=== PATIENT | female | born 1995 | race Caucasian/White ===

== ENCOUNTER 2021-07-25 00:27 | Day surgery (SDC) | payer BC, SELFPAY ==
[2021-07-17 11:43] VITALS: BMI 36.3
[2021-07-25] VITALS (16 sets, daily range): BP systolic 112–177; BP diastolic 65–92; PULSE 69–99; RESP 11–21; TEMP 36.6; O2SAT 94–100; BMI 37.3
--- NOTE | 2021-07-25 | ECHO_ITS ---
Patient Info Name: Leela Wilkerson Age: 25 years : 1995 Gender: Female Ht: 63 in Wt: 210 lbs BSA: 2.10 m2 HR: 75 bpm BP: 132 / 65 mmHg Technical Quality: Fair Exam Date: 07/25/2021 11:16 AM Exam Location: [facility] Patient Status: Outpatient Admit Date: 07/25/2021 Staff Ordering Physician: Ian Lawrence DO Pig Caster: Jessica Walker RDCS Attending Provider: Ghulam Leblanc MD Referring Physician: Howard ROD; Exam Type: CA echo doppler color flow Study Info Indications I47.2 - Ventricular tachycardia Complete two-dimensional, color flow and Doppler transthoracic echocardiogram is performed. Summary 1. Complete two-dimensional, color flow and Doppler transthoracic echocardiogram is performed. 2. No apical images obtained due to recent surgery. 3. Left ventricular chamber dimension is normal. 4. Left ventricular systolic function is normal, estimated at 60-65%. 5. The left ventricular diastolic function is normal. Tissue doppler is not performed. Left Ventricle No apical images obtained due to recent surgery. The left ventricular diastolic function is normal. Tissue doppler is not performed. Left ventricular chamber dimension is normal. Left ventricular systolic function is normal, estimated at 60-65%. Right Ventricle Right ventricular chamber dimension is normal. Right ventricular systolic function is normal. Left Atria Left atrial chamber dimension is normal. Right Atria Right atrial chamber dimension is normal. Aortic Valve The aortic valve is trileaflet. There is no aortic valve stenosis. There is no aortic valve regurgitation. Pulmonic Valve There is no pulmonic regurgitation. Mitral Valve There is no mitral valve stenosis. There is no mitral valve regurgitation. Tricuspid Valve There is no tricuspid valve regurgitation. Pericardium/Pleural There is no pericardial effusion. Inferior Vena Cava Normal inferior vena cava with >50% collapse upon inspiration consistent with normal right atrial pressure, 5 mmHg. Aorta The aortic root size at the sinus of Valsalva is normal. Left Ventricular Outflow Tract Name Value Normal LVOT 2D LVOT Diameter 2.0 cm Pulmonic Valve Name Value Normal RVOT Doppler RVOT Peak Gradient 2 mmHg PV Doppler PV Peak Gradient 4 mmHg Tricuspid Valve Name Value Normal Estimated PAP/RSVP RA Pressure 5 mmHg <=5 Aorta Name Value Normal
[2021-07-25 06:30] LABS: Urine Cotinine NEGATIVE
--- NOTE | 2021-07-25 06:53 | WPDHPUPDATE1 ---
History and Physical Update Update Date/Time: 07/25/21 06:53 History and Physical has been reviewed, including an updated exam of the patient. There are NO changes in the patient's condition. Risks, benefits, and alternatives have been discussed and questions answered. Patient agrees to proceed with procedure.
--- NOTE | 2021-07-25 06:54 | P.OP_ITS ---
Procedure Note - Detailed Date of Procedure 07/25/21 Pre-op Diagnosis macromastia Post-op Diagnosis same Procedure Performed Bilateral Reduction Mammaplasty Surgeon Ghulam Leblanc MD Anesthesia general Findings Invert T Superior Medial Pedicle Tissue removed: Right - 1182.3 grams Left - 1138.6 grams Description of Procedure She is here today for bilateral breast reduction. Previously and again today the risks, benefits, alternatives were discussed in extensive detail. I wanted her to be very realistic about the risks involved as well as expectations. We discussed aftercare and what to monitor for. She understands we can never guarantee final breast size and there will always be asymmetry. I was very upfront and honest about the risks of sensation change and even nipple loss (). Made sure answered all of her questions to her satisfaction today and consent was obtained. She was marked in the preoperative holding area with their verification. The patient was taken to the operating room placed supine on the operating table. Anesthesia was provided by anesthesiology. She was prepped and draped in a standard sterile fashion. A surgical time-out was taken. Stab incisions were made and I tumessed with a tumescent solution. I marked out the nipple-areolar complex at 42 mm. I then de-epithelialized the pedicle. The pedicle was well left well more than 2 cm in thickness. I then removed the inferior portion of the breast as well as the central keel to get shape based on preoperative planning. Patient had a 10-15 second run of ventricular tachycardia at this point per anesthesia and managed by anesthesia. She was stable otherwise throughout the procedure with no other events. At this point copiously irrigated with saline solution and verified a strict hemostasis. I reapproximated the pillars using a 2-0 PDS. I tailor tacked the breast into place with eddy. She was placed in a sitting position. I verified the nipple-areolar complex position based on preoperative markings, intraoperative measurements, and obs ervation which were in full agreement. This nipple-areolar complex was marked at 42 mm in size. To maximize symmetry I did low volume suction lipectomy using a 4mm basket cannula based on S.A.F.E techinque. I then placed supine and de- epithelialized this. Nipple-areolar complex was inset with 3-0 Monocryl. I closed IMF deep with 1 strattafix. I closed the vertical incision with 3-0 Monocryl in the IMF with 3-0 stratafix. Then everything was closed using a running subcuticular 4-0 Monocryl followed by Steri-Strips. A dressing was placed followed by surgical bra. Patient was awoke and taken to PACU without difficulty. All instrument sponge counts were correct at the end of the case. Cardiology (Dr. Lawrence) was consulted and patient discussed with him. Estimated Blood Loss 30 Drains No Packing No Pathology yes (Bilateral breast tissue) Complications Other complications (10-15 seconds of ventricular tachycardia per anesthesia) Condition stable Disposition PACU
--- NOTE | 2021-07-25 07:04 | WPDANESEPPF ---
Anes - Initial Pre Proc Eval Procedure: Operation Date: 07/25/21 07:30 Proposed Procedures p Bilateral Breast Reduction - Ghulam Leblanc MD Date/Time: 07/25/21 07:04 Surgeon: Ghulam Leblanc MD Pre Op Diagnosis: macromastia Patient Data Age: 25 Gender: F Height: 1.6 m Weight: 93 kg Allergies Allergy/AdvReac Type Severity Reaction Status Date / Time acetaminophen Allergy Unknown Nausea Verified 07/17/21 11:42 hydrocodone Allergy Unknown Nausea Verified 07/17/21 11:42 Home Medications Medication Instructions Recorded Confirmed Type ibuprofen 400 mg PO PRN PRN 03/11/21 07/17/21 History levonorgestrel 20 mcg/24 hours (6 1 device INTRAUTERINE ONCE 03/11/21 07/17/21 History yrs) 52 mg intrauterine device docusate sodium 100 mg capsule 100 mg PO BID #14 cap 07/08/21 07/17/21 Rx ondansetron HCl 4 mg tablet 4 mg PO Q6H PRN #30 tablet 07/08/21 07/17/21 Rx tramadol 50 mg tablet 50 mg PO Q6H PRN #15 tablet 07/08/21 07/17/21 Rx ascorbic acid (vitamin C) [Vitamin 500 mg PO DAILY 07/17/21 07/17/21 History C] Laboratory Tests 07/25/21 06:10 Cotinine Negative Patient hx anesthesia problems: none Family hx anesthesia problems: none Results Review: All pre-operative results and documents have been reviewed as part of the pre-operative evaluation. [facility] Past Medical History Medical History (Updated 07/25/21 @ 07:04 by Basil Khan MD) Obesity Surgical History Surgical History History of wisdom tooth extraction 2013 Social History Social History Smoking status: Never smoker Alcohol intake: current Alcohol use details: RARE Substance use: current Substance use type: marijuana Other substance usage details: SMOKE Last use: 07/13/21 Living arrangements: with family Spiritual care concerns: No Anes - Eval Final PreProcedure Day of Procedure 07/25/21 07:04 Patient weight: obese Heart: regular rate and rhythm Lungs: clear to auscultation Airway: Mallampati scale class II Neurological: alert and oriented Last oral intake: >/= 8 hours ASA classification: II Emergent: no Anesthetic plan: proceed Anesthesia type and monitoring: general LMA and standard monitoring Results Review: All pre-operative results and documents have been reviewed as part of the pre-operative evaluation. Informed Consent: The patient's anesthetic plan and its attendant risks and benefits were discussed with the patient/family/POA. Questions were solicited and answers provided to the satisfaction of the patient/family/POA.
[2021-07-25] MEDS: LACTATED RINGERS 1,000 ML 30 ML IV CONT ×3 (07:10→11:49)
[2021-07-25] MEDS: ceFAZolin 2 GM/D5W 50 ML 2 GM/50 ML BAG IVPB (07:28)
[2021-07-25] MEDS: TRANEXAMIC ACID 1,000MG/ISO100 1,000 MG/100 ML BAG 200 MG IVPB (07:32)
[2021-07-25] MEDS: LACTATED RINGERS IRRIG 1,000 ML, LIDOCAINE HCL 1% LOCAL INJ 50 ML, EPINEPHrine HCL INJ ... INFILTRATE (08:45)
--- NOTE | 2021-07-25 09:44 | ECG_ITS ---
Measurements Intervals [place] Rate: 78 P: 45 MI: 160 QRS: 13 QRSD: 89 T: 24 QT: 349 QTc: 399 Interpretive Statements SINUS RHYTHM NORMAL ECG Electronically Signed On 07-25-2021 11:11:13 CDT by Ian Lawrence D.O.
[2021-07-25] MEDS: fentaNYL CITRATE INJ (*CRX) 100 MCG/2 ML VIAL 25 MCG IV PUSH ×5 (10:16→12:31)
[2021-07-25 10:27] LABS: Basophils Percent Auto 0.2 % (0.2-1.2); Eosinophils Percent Auto 0.4 % (0-4.4); Hematocrit 38.4 % (37.0-47.0); Hemoglobin 13.3 g/dL (12.0-15.0); Immature Granulocyte Absolute 0.05 K/mm3 (0.00-0.031); Immature Granulocyte Percent A 0.5 % (0-0.5); Lymphocytes Absolute Auto 1.66 K/mm3 (0.9-3.2); Lymphocytes Percent Auto 15.1 % (18.3-44.2); Mean Corpuscular HGB Conc 34.6 g/dl (32-36); Mean Corpuscular Hemoglobin 32.3 pg (26-34); Mean Corpuscular Volume 93.2 fl (80-100); Monocytes Absolute Auto 0.2 K/mm3 (0.1-0.6); Monocytes Percent Auto 1.4 % (2.6-8.5); Neutrophils Absolute Auto 9.1 K/mm3 (1.3-6.7); Neutrophils Percent Auto 82.4 % (45.5-73.1); Platelet Count Result 257 k/mm3 (150-375); Red Blood Count 4.12 M/mm3 (4.2-5.4); Red Cell Distribution Width 12.5 % (11.5-14.5)
[2021-07-25 10:29] LABS: Anion Gap 9 mmol/L (8-16); Blood Urea Nitrogen 9 mg/dL (7-17); Calcium 9.1 mg/dL (8.4-10.2); Carbon Dioxide 25 mmol/L (22-30); Chloride 105 mmol/L (98-107); Estimated CRCL calculation 117 ml/min; Estimated Glomerular Filt Rate > 60; Glucose 109 mg/dL (65-110); Magnesium 1.8 mg/dL (1.6-2.3); Potassium 4.5 mmol/L (3.4-5.0); Sodium 139 mmol/L (137-145)
--- NOTE | 2021-07-25 10:29 | SUR.PHASEI ---
EKG DONE AT BEDSIDE. AWAITING CARDIOLOGY CONSULT.
--- NOTE | 2021-07-25 10:48 | SUR.PHASEI ---
PATIENT DENIES SOB, PALPITATIONS.
--- NOTE | 2021-07-25 11:00 | PM.CNCAR ---
Assessment and Plan Assessment and plan (1) PVT (paroxysmal ventricular tachycardia): Code(s): I47.2 - Ventricular tachycardia Status: Acute Assessment and Plan: This could be from surgery itself given adrenergic state. Nonsustained lasting 10-[address] Dia. No strips available to verify and apparently it was not recorded on telemetry during surgery. Check CBC, BMP, Mag, and TSH. All OK except TSH pending. Obtain echo to assess structure and function. If OK, may be d/c home to f/u with me in 1 week. Prior to discharge, will have my office place 30 day event monitor. (2) Post-operative state: Code(s): Z98.890 - Other specified postprocedural states Status: Acute Assessment and Plan: POD #0. History of Present Illness History of Present Illness Consult date/time: 07/25/21 11:00 Reason for consult: VT. 25 yr old woman presented for elective breast reduction surgery this morning. She reports having an arrhythmia at age 16, and no defibrillation needed. During surgery with Dr. Dia it was noted she went into VT for 10-15 seconds and spontaneously resolved. I'm seeing her in PACU currently and telemetry shows sinus rhythm. She can walk 3/4 mile without any problems. She does drink 1 redbull per day 5 days a week. Denies chest pain, sob, orthopnea, PND, edema, palpitations. Reason For Visit: macromastia Review of Systems Review of Systems: All systems reviewed & are unremarkable except as noted in HPI and below Constitutional: Constitutional: Reports as per HPI, Denies chills and Denies fever(s) Cardiovascular: Cardiovascular: Reports as per HPI, Denies chest pain, Denies irregular heart rhythm, Denies leg edema and Denies dyspnea on exertion Respiratory: Respiratory: Reports as per HPI and Denies dyspnea Gastrointestinal: Gastrointestinal: Reports as per HPI and Denies abdominal pain Genitourinary: Genitourinary: Reports as per HPI and Denies dysuria Musculoskeletal: Musculoskeletal: Reports as per HPI Neurologic: Reports as per HPI, Denies dizziness and Denies syncope [facility] Past Medical History Medical History (Updated 07/25/21 @ 11:04 by Ian Lawrence DO) Obesity Surgical History Surgical History (Updated 07/25/21 @ 11:04 by Ian Lawrence DO) History of wisdom tooth extraction 2013 Social History Social History Smoking status: Never smoker Alcohol intake: current Alcohol use details: RARE Substance use: current Substance use type: marijuana Other substance usage details: SMOKE Last use: 07/13/21 Living arrangements: with family Spiritual care concerns: No Meds Home Medications and Allergies Home Medications Medication Instructions Recorded Confirmed Type ibuprofen 400 mg PO PRN PRN 03/11/21 07/17/21 History levonorgestrel 20 mcg/24 hours (6 1 device INTRAUTERINE ONCE 03/11/21 07/17/21 History yrs) 52 mg intrauterine device docusate sodium 100 mg capsule 100 mg PO BID #14 cap 07/08/21 07/17/21 Rx ondansetron HCl 4 mg tablet 4 mg PO Q6H PRN #30 tablet 07/08/21 07/17/21 Rx tramadol 50 mg tablet 50 mg PO Q6H PRN #15 tablet 07/08/21 07/17/21 Rx ascorbic acid (vitamin C) [Vitamin 500 mg PO DAILY 07/17/21 07/17/21 History C] Allergies Allergy/AdvReac Type Severity Reaction Status Date / Time acetaminophen Allergy Unknown Nausea Verified 07/25/21 07:07 hydrocodone Allergy Unknown Nausea Verified 07/25/21 07:07 Vital Signs Vital Signs - 24 hr 07/25/21 06:10 07/25/21 10:02 07/25/21 10:15 Temperature 97.9 F 97.8 F Pulse Rate 69 94 76 Respiratory Rate 16 14 16 Blood Pressure 120/81 123/76 132/79 Pulse Oximetry 100 100 100 07/25/21 10:30 07/25/21 10:45 Temperature Pulse Rate 97 73 Respiratory Rate 15 16 Blood Pressure 131/72 132/65 Pulse Oximetry 97 4 L Exam Const: General: cooperative, healthy appearing and comfortable Res
--- NOTE | 2021-07-25 11:03 | SUR.PHASEI ---
DR. COLLINS HERE TO SEE PT. AWAITING ECHOCARDIOGRAM.
--- NOTE | 2021-07-25 11:20 | SUR.PHASEI ---
1110 KILN FIRER HERE TO DO ECHO. 1120 HOLTER TELEMARKETER SUPERVISOR HERE TO PLACE HOLTER MONITOR. PT TOLERATING ECHO WELL.
--- NOTE | 2021-07-25 12:07 | SUR.PHASEI ---
AWAITING DR. COLLINS TO CLEAR PT TO GO HOME.
[2021-07-25] MEDS: traMADol HCL (*CRX) 50 MG TABLET PO (13:36)
--- NOTE | 2021-07-25 14:15 | SUR.PHASEII ---
PATIENT AND MOM AWARE OF FOLLOW UP NEEDS WITH DR COLLINS, DRESSING DRY INTACT AT DISCHARGE, STATES PAIN BETTER AND READY TO GO HOME AND MEETS ANESTHESIA AND PROVIDER DISCHARGE CRITERIA
[2021-07-26 21:55] LABS: Alanine Aminotransferase 17 U/L (4-35); Albumin Level 4.4 g/dL (3.5-5.1); Alkaline Phosphatase 74 U/L (38-126); Aspartate Amino Transferase 23 U/L (14-36); Bilirubin,Total 0.5 mg/dL (0.2-1.3)
== END 2021-07-25 14:19 | disposition home or self-care (01) ==
PROVIDERS: Internal Medicine Cardiovascular Disease; PCP Family Medicine; Visit Provider Surgery Plastic and Reconstructive Surgery
PROC: 0HBV0ZZ Excision of Bilateral Breast, Open Approach (ICD-10-PCS; CPT 19318; principal; 2021-07-25 07:30)
DX: N62 Hypertrophy of breast (principal); I47.2 Ventricular tachycardia; N60.32 Fibrosclerosis of left breast; N60.31 Fibrosclerosis of right breast; F12.90 Cannabis use, unspecified, uncomplicated; E66.9 Obesity, unspecified; Z68.37 Body mass index [BMI] 37.0-37.9, adult; Z79.899 Other long term (current) drug therapy
CPT/HCPCS: 19318; 80048; 80076; 80307; 83735; 84443; 85025; 88305; 93005; 93306; A9270; J0171; J0690; J1100; J1170; J2250; J2405; J2704; J3010; J7120

== ENCOUNTER 2021-08-30 08:37 | Outpatient (CLI) | payer OTHER, BC, SELFPAY ==
--- NOTE | 2021-08-30 08:44 | EST_ITS ---
Patient Info Name: Leela Wilkerson Age: 26 years : 1995 Gender: Female Ht: 63 in Wt: 210 lbs BSA: 2.10 m2 HR: 62 bpm BP: 124 / 74 mmHg Exam Date: 08/30/2021 8:56 AM Exam Location: [facility] Patient Status: Outpatient Admit Date: 08/30/2021 Staff Ordering Physician: Ian Lawrence DO Attending Provider: Ian Lawernce DO Exercise Technologist: Zahraa Arceo CT Exercise Physician: Ian Lawrence DO Exam Type: CA stress test treadmill Study Info Indications R07.9 - Chest pain, unspecified An exercise stress test was performed. Summary 1. 1. Negative Salvatore exercise stress test for ischemic ST changes by ECG criteria. 2. 2. Good functional capacity, achieving 10 METs of workload. 3. 3. Appropriate HR response to exercise. 4. 4. Appropriate HR recovery at 1 minute post exercise. 5. 5. No imaging with stress testing. 6. 6. Patient informed of the above results. Protocol: Salv[place] Stress ECG Details Stage: REST Duration (min): 1 min : 11 sec Speed (mph): 0.0 Grade (%): 0 HR (bpm): 66 SBP (mmHg): 124 DBP (mmHg): 74 METS: --- Stage: REST Duration (min): 5 min : 12 sec Speed (mph): 0.0 Grade (%): 0 HR (bpm): 73 SBP (mmHg): 124 DBP (mmHg): 74 METS: --- Stage: STAGE 1 Duration (min): 1 min : 0 sec Speed (mph): 1.7 Grade (%): 10 HR (bpm): 108 SBP (mmHg): 124 DBP (mmHg): 74 METS: --- Stage: STAGE 1 Duration (min): 2 min : 0 sec Speed (mph): 1.7 Grade (%): 10 HR (bpm): 118 SBP (mmHg): 124 DBP (mmHg): 74 METS: --- Stage: STAGE 1 Duration (min): 3 min : 0 sec Speed (mph): 1.7 Grade (%): 10 HR (bpm): 131 SBP (mmHg): 140 DBP (mmHg): 45 METS: --- Stage: STAGE 2 Duration (min): 1 min : 0 sec Speed (mph): 2.5 Grade (%): 12 HR (bpm): 142 SBP (mmHg): 140 DBP (mmHg): 45 METS: --- Stage: STAGE 2 Duration (min): 2 min : 0 sec Speed (mph): 2.5 Grade (%): 12 HR (bpm): 153 SBP (mmHg): 150 DBP (mmHg): 65 METS: --- Stage: STAGE 2 Duration (min): 3 min : 0 sec Speed (mph): 2.5 Grade (%): 12 HR (bpm): 154 SBP (mmHg): 150 DBP (mmHg): 65 METS: --- Stage: STAGE 3 Duration (min): 1 min : 0 sec Speed (mph): 3.4 Grade (%): 14 HR (bpm): 167 SBP (mmHg): 131 DBP (mmHg): 74 METS: --- Stage: STAGE 3 Duration (min): 2 min : 0 sec Speed (mph): 3.4 Grade (%): 14 HR (bpm): 174 SBP (mmHg): 131 DBP (mmHg): 74 METS: --- Stage: STAGE 3 Duration (min): 3 min : 0 sec Speed (mph): 3.4 Grade (%): 14 HR (bpm): 177 SBP (mmHg): 136 DBP (mmHg): 65 METS: --- Stage: RECOVERY Duration (min): 0 min : 59 sec Speed (mph): 0.0 Grade (%): 0 HR (bpm): 150 SBP (mmHg): 136 DBP (mmHg): 65 METS: --- Stage: RECOVERY Duration (min)
== END 2021-08-30 08:38 | disposition home or self-care (01) ==
LOC: ANHCARD 08:41
PROVIDERS: PCP Family Medicine; Visit Provider Internal Medicine Cardiovascular Disease
DX: R07.9 Chest pain, unspecified (principal)
CPT/HCPCS: 93017